=== PATIENT | female | born 1955 | race Caucasian/White ===

== ENCOUNTER 2024-12-30 09:15 | Outpatient (RCR) | payer MEDICARE, OTHER, SELFPAY ==
--- NOTE | 2024-11-26 16:05 | PT.OPEX ---
[facility] Eval Start: 11/26/24 10:06 Freq: Status: Active Protocol: Document 11/26/24 10:06 CRP (Rec: 11/26/24 16:00 CRP [id number]) E-signed By Shawn Lemon, PT Physical Therapy Outpatient Evaluation Insurance Information Recert Due Date 02/24/25 Insurance Name Medicare B Medical Diagnosis Low back pain Referring MD Dr Schaefer Subjective Subjective Pt reports that a few weeks ago got to a point where she needed to walk with a cane. Has had prednisone and Toradol shot. Pain has been L side low back with pain down the L leg to below the knee. Did try care professionals. Pain was severe. Meds seemed to help calm her sxs to some degree. Currently she is pain free and has been for about 2 weeks. Currently exercises with stationary bike, walking and doing Senior Sneakers classes - low impact aerobics 2x/wk. Pt is not currently limited. Current Work Status Retired Objective Other/Pertinent Posture: increased thoracic kyphosis. TL spine Objective scoliosis noted Trunk ROM: Flex WNL, R SB WNL, L SB mod dec, Rot WNL bilat Hip ROM WNL BILat MMT: Myotomes WNL. Trunk flexion 3+ to 4-/5. Bilat hip abd 4-/5. Segmental testing: TL junction shows mechanical restriction SLR negative bilat Assessment Assessment/ Pt presents to the clinic following very recent issues Impression with severe LBP and LE pain. Currently the pt shows ongoing issues with poor thoracolumbar spine mobility, significant trunk weakness, significant hip weakness and poor neuromuscular control of the lumbopelvic spine . Skilled PT is necessary to incorporate ther ex, nm mariana, manual therapy and pt education to decrease pain and improve functional mobility. 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 Pt will be independent with HEP in 8 weeks. Goals 2. Pt will complete all rock lather without c.o in 10 weeks. Coordination/ Referral Source Communication With Treatment Plan/ Manual Therapy,Neuromuscular Re-ed,Self-Care/Home Direct Interventions Management,Therapeutic Activities,Therapeutic Exercises Frequency/Duration 1-2x/wk for 12 weeks Patient Will Be Completion of LTG(s),Skills Plateau,Independent w/HEP, Discharged From Independently Progressing Therapy Evaluation Billing Untimed Code 30 Treatment Minutes Complexity Moderate Certification Information Initial 11/26/24 Certification Date Ending Certification 02/24/25 Date Provider Signature Yes Required Provider Signature POC & Medical Necessity Shows Agreement With Physician NPI Number Write NPI# Here Physician Comment/ : Change Physician Signature Please Sign/Date Here & Date Requested
== END 2025-04-29 23:59 | disposition home or self-care (01) ==
PROVIDERS: PCP Student in an Organized Health Care Education/Training Program; Visit Provider Family Medicine
DX: M54.50 Low back pain, unspecified (principal); M41.9 Scoliosis, unspecified; Z51.89 Encounter for other specified aftercare
CPT/HCPCS: 97110; 97162